=== PATIENT | female | born 1985 | race Caucasian/White ===

== ENCOUNTER → 2016-06-25 | Outpatient (CLI) | payer BC ==
[2016-06-25 18:51] LABS: ALANINE AMINOTRANSFERASE 16 U/L (9-52); ALBUMIN 3.5 g/dL (3.5-5.0); ALKALINE PHOSPHATASE 178 U/L (38-126); ANION GAP 13 (5-19); ASPARTATE AMINO TRANSFERASE 18 U/L (14-36); BILIRUBIN,TOTAL 0.5 mg/dL (0.2-1.3); BLOOD UREA NITROGEN 9 mg/dL (7-20); CALCIUM 9.3 mg/dL (8.4-10.2); CARBON DIOXIDE 23 mmol/L (22-30); CHLORIDE 102 mmol/L (98-107); CREATININE RESULT 0.62 mg/dL (0.52-1.25); GLUCOSE 106 mg/dL (75-110); POTASSIUM 3.9 mmol/L (3.6-5.0); SODIUM 137.8 mmol/L (137-145); TOTAL PROTEIN 6.1 g/dL (6.3-8.2)
== END ==
LOC: OD 16:51
PROVIDERS: ATTEND Midwife
DX: L29.9 Pruritus, unspecified (principal)
CPT/HCPCS: 36415; 80053; 82239

== ENCOUNTER 2016-07-21 04:12 | Inpatient (IN) | payer BC ==
[2016-07-21] MEDS ORDERED: RINGERS SOLUTION,LACTATED 1,000 ML IV PRN (04:28)
[2016-07-21] MEDS ORDERED: RINGERS SOLUTION,LACTATED 1,000 ML IV ONE (04:28)
[2016-07-21 04:38] LABS: APPEARANCE,URINE TURBID; BILIRUBIN,URINE NEGATIVE (NEGATIVE); GLUCOSE, URINE NEGATIVE (NEGATIVE); KETONES,URINE 20 mg/dL (NEGATIVE); LEUKOCYTE ESTERASE,URINE NEGATIVE (NEGATIVE); NITRITE,URINE NEGATIVE (NEGATIVE); PROTEIN,URINE 100 mg/dL (NEGATIVE); URINE SPECIFIC GRAVITY 1.016; UROBILINOGEN,URINE NEGATIVE mg/dL (<2.0)
[2016-07-21] MEDS ORDERED: EPHEDRINE SULFATE INJ 50 MG/1 ML AMPULE ONE (04:43)
[2016-07-21] MEDS ORDERED: OXYTOCIN/NORMAL SALINE 20 UNIT/1,000 ML RTUINJ ONE ×2 (04:43→06:53)
[2016-07-21] MEDS ORDERED: LIDOCAINE 1% INJ-PF (10 MG/ML) 30 ML SDV ONE (04:43)
[2016-07-21] MEDS ORDERED: FENTANYL/BUPIVACAINE/NS/PF 0 MCG/0 ML RTUINJ EPI ONE (04:43)
[2016-07-21] MEDS ORDERED: MISOPROSTOL 0.2 MG TABLET ONE (04:43)
[2016-07-21] MEDS ORDERED: BUPIVACAINE HCL 0.25 % INJ/PF (2.5 MG/1 ML) 30 ML VIAL ONE (04:43)
[2016-07-21 04:51] LABS: ABSOLUTE EOSINOPHILS # (AUTO) 0.2 10^3/uL (0.0-0.6); ABSOLUTE LYMPHOCYTES (AUTO) 2.1 10^3/uL (0.5-4.7); ABSOLUTE MONOCYTES (AUTO) 0.9 10^3/uL (0.1-1.4); BASOPHILS % (AUTO) 0.5 % (0-2); EOSINOPHILS % (AUTO) 1.6 % (0-6); HEMATOCRIT 35.1 % (36.0-47.0); HEMOGLOBIN 11.7 g/dL (12.0-15.5); LYMPHOCYTES % (AUTO) 20.4 % (13-45); MEAN CORPUSCULAR HEMOGLOBIN 28.3 pg (27.0-33.4); MEAN CORPUSCULAR HGB CONC 33.4 g/dL (32.0-36.0); MEAN CORPUSCULAR VOLUME 85 fl (80-97); MONOCYTES % (AUTO) 8.5 % (3-13); RED BLOOD COUNT 4.15 10^6/uL (3.72-5.28); RED CELL DISTRIBUTION WIDTH 14.3 % (11.5-14.0); WHITE BLOOD COUNT 10.1 10^3/uL (4.0-10.5)
[2016-07-21 04:58] LABS: URINE BARBITURATES SCREEN NEGATIVE; URINE METHADONE SCREEN NEGATIVE; URINE OPIATES LOW NEGATIVE; URINE PHENCYCLIDINE SCREEN NEGATIVE
[2016-07-21] MEDS ORDERED: IBUPROFEN 800 MG TABLET ONE (07:37)
--- NOTE | 2016-07-21 08:01 | L&D Flow Sheet ---
LD Flowsheet Datetime Report Generated by CPN: 07/21/2016 08:00 Datetime: 07/21/2016 07:30 NBP Sys/Rebecca/Mean (mmHg): 133 (QS system process) : 84 (QS system process) : 104 (QS system process) Pulse: 72 (QS system process) Datetime: 07/21/2016 07:12 Vital Signs Stage of : Recovery (Gi Cunningham, RN) Datetime: 07/21/2016 07:00 Vital Signs Stage of : Recovery (Gi Cunningham, RN) Pain Pain Scale: 0 (Gi Cunningham, RN) Pain Presence: None/Denies (Gi Cunningham, RN) Pain Type: N/A (Gi Cunningham, RN) Datetime: 07/21/2016 06:56 Vital Signs Stage of : Recovery (Gi Cunningham, RN) Datetime: 07/21/2016 06:45 Vital Signs Stage of : Recovery (Gi Cunningham, RN) Pain Pain Scale: 0 (Gi Cunningham, RN) Pain Presence: None/Denies (Gi Cunningham, RN) Pain Type: N/A (Gi Cunningham, RN) Datetime: 07/21/2016 06:32 Vital Signs Stage of : Recovery (Gi Cunningham, RN) Datetime: 07/21/2016 06:30 Vital Signs Stage of : Recovery (Gi Cunningham, RN) Pain Pain Scale: 2 (Gi Cunningham, RN) Pain Presence: Constant (Gi Cunningham, RN) Pain Type: Cramping (Gi Cunningham, RN) Pain Location: Abdomen (Gi Cunningham, RN) Pain Goal: 1 (Gi Cunningham, RN) Pain Relief Measures: Comfort Measures (Gi Cunningham, RN) Datetime: 07/21/2016 06:15 Vital Signs Stage of : Recovery (Gi Cunningham, RN) Respirations: 18 (Gi Cunningham, RN) Pain Pain Scale: 2 (Gi Cunningham, RN) Pain Presence: Constant (Gi Cunningham, RN) Pain Type: Cramping (Gi Cunningham, RN) Pain Location: Abdomen (Gi Cunningham, RN) Pain Goal: 1 (Gi Cunningham, RN) Pain Relief Measures: Comfort Measures (Gi Cunningham, RN) Datetime: 07/21/2016 06:00 Vital Signs Stage of : Recovery (Gi Cunningham, RN) Respirations: 18 (Gi Cunningham, RN) Pain Pain Scale: 2 (Gi Cunningham, RN) Pain Presence: Constant (Gi Cunningham, RN) Pain Type: Cramping (Gi Cunningham, RN) Pain Location: Abdomen (Gi Cunningham, RN) Pain Goal: 1 (Gi Cunningham, RN) Pain Relief Measures: Comfort Measures (Gi Cunningham, RN) Datetime: 07/21/2016 05:57 Vital Signs Stage of : Recovery (Gi Cunningham, RN) Datetime: 07/21/2016 05:38 Vital Signs Stage of : Labor (Gi Cunningham, RN) Uterine Activity Monitor Mode: External; Palpation (Gi Cunningham, RN) Frequency (min): 1-2.5 (Gi Cunningham, RN) Quality: Strong (Gi Cunningham, RN) Duration (sec): 70-120 (Gi Cunningham, RN) Pattern: Normal: <= 5 Contractions in 10 Minutes (Gi Cunningham, RN) Resting Tone (Palpate): Relaxed (Gi Cunningham, RN) Assessment A Monitor Mode: External US (Gi Cunningham, RN) Monitor Interventions for FHR: Ultrasound Adjusted (Gi Cunningham, RN) FHR Baseline Rate : 140 (Gi Cunningham, RN) Variability: Moderate 6-25 bpm (Gi Cunningham, RN) Accelerations: 15X15 (Gi Cunningham, RN) Decelerations: None (Gi Cunningham, RN) Communication Communication: RN at Bedside; RN Reviewed Strip (Gi Cunningham, RN) Datetime: 07/21/2016 05:34 Stage 2 Pushing: Urge to Push (Gi Cunningham, RN) Pushing Position: Pushing with Contractions (Gi Cunningham, RN) Pushing Progress: Descent with Pushing; Presenting Part Visible (Gi Cunningham, RN) Stage 2 Comments: Continuously monitoring FHR while pushing with patient (Gi Octavio, RN) Datetime: 07/21/2016 05:33 Vaginal Exam Dilatation (cm): 10.0 (Lynne Addy, RN) Effacement (%): 100 (Lynne Addy, RN) Station: 2 (Lynne Cheungsel, RN) Exam by: B Octavio RN (Lynne Addy, RN) Datetime: 07/21/2016 05:30 Communication Communication: Provider at Bedside (Lynne Addy, RN) Communication Comments: Dr Lim at bedside (Lynne Addy, RN) Datetime: 07/21/2016 05:23 Monitor Interventions for FHR: Ultrasound Adjusted (Lynne Addy, RN) Datetime: 07/21/2016 05:18 Procedures: Bedside Ultrasound Done (Lynne Addy, RN) Datetime: 07/21/2016 05:15 Vital Signs Stage of : Labor (Gi Cunningham, RN) Uterine Activity Monitor Mode: External; Palpation (Gi Cunningham, RN) Frequency (min): 1.5-2.5 (Gi Cunningham, RN) Quality: Strong (Gi Cunningham, RN) Duration (sec): 60-110 (Gi Cunningham, RN) Pattern: Normal: <= 5 Contractions in 10 Minutes (Gi Cunningham, RN) Resting Tone (Palpate): Relaxed (Gi Cunningham, RN) Assessment A Monitor Mode: External US (Gi Cunningham, RN) FHR Baseline Rate : 125 (Ig Cunningham, RN) Variability: Moderate 6-25 bpm (Gi Cunningham, RN) Accelerations: 15X15 (Gi Cunningham, RN) Decelerations: None (Gi Cunningham, RN) Pain Pain Scale: 5 (Gi Cunningham, RN) Pain Presence: Intermittent (Gi Cunningham, RN) Pain Type: Contraction (Gi Cunningham, RN) Pain Location: Abdomen; Perineum (Gi Cunningham, RN) Stage 2 Pushing: Involuntary Pushing (Gi Cunningham, RN) Stage 2 Comments: encouraging patient to breath through cobntractions (Gi Cunningham, RN) Communication Communication: RN at Bedside; RN Reviewed Strip (Gi Cunningham, RN) LaborFlag: Labor (QS system process) Datetime: 07/21/2016 05:10 Communication Comments: Dr. Lim notified of pt's rapid progress. (Lisa Isak, RN) Datetime: 07/21/2016 05:07 Vaginal Exam Dilatation (cm): 8.0 (Gi Cunningham, RN) Effacement (%): 90 (Gi Cunningham, RN) Station: -1 (Gi Cunningham, RN) Exam by: Garth Parisi RN (Gi Cunningham, RN) Vaginal Bleeding: None (Gi Cunningham, RN) Cervix, Consistency: Soft (Gi Cunningham, RN) Cervix, Position: Midposition (Gi Cunningham, RN) Datetime: 07/21/2016 05:00 Vital Signs Stage of : Labor (Gi Cunningham, RN) Uterine Activity Monitor Mode: External; Palpation (Gi Cunningham, RN) Frequency (min): 1.5-2.5 (Gi Cunningham, RN) Quality: Strong (Gi Cunningham, RN) Duration (sec): 60-120 (Gi Cunningham, RN) Pattern: Normal: <= 5 Contractions in 10 Minutes (Gi Cunningham, RN) Resting Tone (Palpate): Relaxed (Gi Cunningham, RN) Assessment A Monitor Mode: External US (Gi Cunningham, RN) FHR Baseline Rate : 130 (Gi Cunningham, RN) Variability: Moderate 6-25 bpm (Gi Cunningham, RN) Accelerations: 10X10 (Gi Cunningham, RN) Decelerations: Early (Gi Cunningham, RN) Communication Communication: RN at Bedside; RN Reviewed Strip (Gi Cunningham, RN) Datetime: 07/21/2016 04:50 Procedures: Consents Signed (Gi Cunningham, RN) Datetime: 07/21/2016 04:45 Vital Signs Stage of : Labor (Gi Cunningham, RN) Uterine Activity Monitor Mode: External; Palpation (Gi Cunningham, RN) Frequency (min): 1-2 (Gi Cunningham, RN) Quality: Strong (Gi Cunningham, RN) Duration (sec): 40-90 (Gi Cunningham, RN) Pattern: Normal: <= 5 Contractions in 10 Minutes (Gi Cunningham, RN) Resting Tone (Palpate): Relaxed (Gi Cunningham, RN) Assessment A Monitor Mode: External US (Gi Cunningham, RN) FHR Baseline Rate : 130 (Gi Cunningham, RN) Variability: Moderate 6-25 bpm (Gi Cunningham, RN) Accelerations: 10X10 (Gi Cunningham, RN) Decelerations: None (Gi Cunningham, RN) Pain Pain Scale: 4 (Gi Cunningham, RN) Pain Presence: Intermittent (Gi Cunningham, RN) Pain Type: Contraction (Gi Cunningham, RN) Pain Location: Abdomen (Gi Cunningham, RN) Pain Goal: 1 (Gi Cunningham, RN) Pain Relief Measures: Comfort Measures (Gi Cunningham, RN) Comfort Measures: Breathing/Relaxation (Gi Cunningham, RN) Communication Communication: RN at Bedside; RN Reviewed Strip (Gi Cunningham, RN) LaborFlag: Labor (QS system process) Datetime: 07/21/2016 04:44 Patient Care IV/Blood Work: Labs Drawn (Gi Cunningham, RN) Datetime: 07/21/2016 04:41 Frequency (min): every 1-5 minutes per patient (Gi Cunningham, RN) Pain Pain Scale: 3 (Gi Cunningham, RN) Pain Presence: Intermittent (Gi Cunningham, RN) Pain Type: Contraction (Gi Cunningham, RN) Pain Location: Back (Gi Cunningham, RN) Pain Goal: 1 (Gi Cunningham, RN) Pain Relief Measures: Comfort Measures (Gi Cunningham, RN) Pain Coping: Breathing Through Contractions (Gi Cunningham, RN) Membrane Status: Ruptured (Gi Cunningham, RN) Membranes Ruptured Date/Time: 07/21/2016 03:15 (Gi Cunningham, RN) Membranes Rupture Method: Spontaneous (Gi Cunningham, RN) Amniotic Fluid Color: Clear (Gi Cunningham, RN) Amniotic Fluid Amount: Small (Gi Cunningham, RN) Amniotic Fluid Odor: Normal (Gi Cunningham, RN) Vaginal Bleeding: None (Gi Cunningham, RN) Maternal Assessment Level of Consciousness: Fully Conscious (Gi Cunningham, RN) DTR's/Clonus: DTRs 2+; No Clonus (Gi Cunningham, RN) Headache: Denies (Gi Cunningham, RN) Breath Sounds, Left: Clear and Equal (Gi Cunningham, RN) Breath Sounds, Right: Clear and Equal (Gi Cunningham, RN) Nausea/Vomiting: Denies (Gi Cunningham, RN) RUQ Epigastric Pain: Denies (Gi Cunningham, RN) Datetime: 07/21/2016 04:36 NBP Sys/Rebecca/Mean (mmHg): 125 (QS system process) : 85 (QS system process) : 98 (QS system process) Pulse: 85 (QS system process) Datetime: 07/21/2016 04:32 Patient Care IV/Blood Work: IV Started; IV Bolus Started (Gi Cunningham RN) Patient Care Comments: 18 gauge placed in L hand in first attempt by Kassidy Daly RN (Gi Cunningham RN) Datetime: 07/21/2016 04:29 Vaginal Exam Dilatation (cm): 5.0 (Gi Cunningham RN) Effacement (%): 90 (Gi Cunningham RN) Station: -2 (Gi Cunningham RN) Exam by: Jillian Cunningham RN (Gi Cunningham RN) Vaginal Bleeding: None (Gi Cunningham RN) Cervix, Consistency: Soft (Gi Cunningham RN) Cervix, Position: Midposition (Gi Cunningham RN)
--- NOTE | 2016-07-21 08:01 | Admission Physical ---
Datetime Report Generated by CPN: 07/21/2016 08:01 CURRENT ADMISSION Hx Assessment: The History has been Reviewed and is Current Chief Complaint: Uterine Contractions; Suspected Ruptured Membranes Indication for Induction: Not Applicable Admit Plan: Admit to Unit; Initiate Labor Protocol ALLERGIES Medication Allergies: Yes Medication Allergies: prednisone (07/21/2016) Latex: No Latex Allergies Food Allergies: none Environmental Allergies: none OBSTETRICAL HISTORY EDC: 08/01/2016 00:00 : 4 Para: 1 Term: 1 : 0 SAB: 2 IAB: 0 Ectopic: 0 Livin Cesareans: 0 VBACs: 0 Multiple Births: 0 Gestational Diabetes: Yes Rh Sensitization: No Incompetent Cervix: No PANTERA: No Infertility: No ART Treatment: No Uterine Anomaly: No IUGR: No Hx Previous C/S: No Macrosomia: No Hx Loss/Stillborn: No PIH: No Hx : No Placenta Previa/Abruption: No Depression/PP Depression: No PTL/PROM: No Post Hemorrhage: No Current Procedures: Ultrasound; NST Obstetrical History Comments: G1- male @ 39 wks gestation G2- 12/2014 SAB G304/2015 SAB G4- Current SEE RECORDS Alcohol: No Marijuana : No Cocaine: No Other Illicit Drugs: No Cigarettes: Former Smoker. [id number] MEDICAL HISTORY Diabetes: No Diabetes Type: Gestational Diabetes Blood Transfusion: No Pulmonary Disease (Asthma, TB): No Breast Disease: No Hypertension: No Poultry Helper Surgery: No Heart Disease: No Hosp/Surgery: Yes Autoimmune Disorder: No Anesthetic Complications: No Kidney Disease: No Abnormal Pap Smear: Yes Neuro/Epilepsy: No Psychiatric Disorders: No Other Medical Diseases: No Hepatitis/Liver Disease: No Significant Family History: No Varicosities/Phlebitis: No Trauma/Violence : No Thyroid Dysfunction: No Medical History Comments: 11/2013-ASCUS pap; Childbirth; INFECTIOUS HISTORY Gonorrhea: No Genital Herpes: No Chlamydia: No Tuberculosis: No Syphilis: No Hepatitis: No HIV/AIDS Exposure: No Rash or Viral Illness: No HPV: No PHYSICAL EXAM General: Normal HEENT: Deferred Neurologic: Deferred Thyroid: Deferred Heart: Normal Lungs: Normal Breast: Deferred Back: Deferred Abdomen: Normal Genitourinary Exam: Normal Extremities: Normal DTRs: Normal Pelvic Type: Adequate Vital Signs: Reviewed; Within Normal Limits MEMBRANES Membranes: Ruptured FETUS A EGA: 38.3 FHR- Baseline: 140 Variability: Moderate 6-25bpm Accelerations: 15X15 Decelerations: None FHR Category: Category I Admit Comment: TErm labor and delivery. GBS neg PLANS FOR LABOR AND DELIVERY Labor and Delivery: None Pain Management: Epidural Feeding Preference: Breast Benefit of Breast Feed Discussed: Yes Circumcision: N/A INFORMED CONSENT Signature: with User ID: [email or web address]
[2016-07-21] MEDS ORDERED: DIPH/PERTUSS(ACELL)/TETANUS VAC/PF 0.5 ML SYR (>=10YO) IM PRN (08:03)
[2016-07-21] MEDS ORDERED: OXYTOCIN/NORMAL SALINE 1,000 ML IV PRN (08:03)
[2016-07-21] MEDS ORDERED: ACETAMINOPHEN WITH CODEINE #3 TABLET PO PRN ×2 (08:03)
[2016-07-21] MEDS ORDERED: BENZOCAINE/MENTHOL AEROSOL SPRAY 56 ML TOP PRN (08:03)
[2016-07-21] MEDS ORDERED: DIBUCAINE 1% OINTMENT 28 GM TP PRN (08:03)
[2016-07-21] MEDS ORDERED: MEASLES,MUMPS&RUBELLA VACC/PF 0.5 ML VIAL SUBCUT PRN (08:03)
[2016-07-21] MEDS ORDERED: ZOLPIDEM TARTRATE 5 MG TABLET PO PRN (08:03)
[2016-07-21] MEDS: PRENATAL VITAMIN W-O CA NO5/FE FUMARATE/FA CAPSULE PO SCH (10:08)
[2016-07-21] MEDS: SENNOSIDES/DOCUSATE 8.6-50 MG 1 EACH TABLET PO SCH (10:08)
[2016-07-21] MEDS: DOCUSATE SODIUM 100 MG CAPSULE PO SCH ×2 (10:08→17:55)
[2016-07-21] MEDS: FERROUS SULFATE 325 MG TABLET PO SCH ×2 (10:09→17:55)
[2016-07-21] MEDS: IBUPROFEN 800 MG TABLET PO SCH ×2 (13:39→21:19)
--- NOTE | 2016-07-21 17:28 | Delivery Summary ---
Del Sum A-C Datetime Report Generated by CPN: 07/21/2016 17:28 ADMISSION DATA Chief Complaint: Uterine Contractions; Suspected Ruptured Membranes Indication for Induction: Not Applicable Admission Impression: Term, Intrauterine ; Active Labor; Ruptured Membranes Admit Provider Comments: TErm labor and delivery. GBS neg DELIVERY PERSONNEL Delivery Doctor:: Carolyn Lim MD Labor and Delivery Nurse:: Gi Cunningham RNpear picker Nurse:: Lynne Daly RN Wash Operator/CHARLEE: Megan Potter, STOVE INSTALLER MATERNAL INFORMATION Delivery Anesthesia: Local Medications After Delivery: Pitocin Drip 20 Units/1000ml NSS Estimated Blood Loss (ml): 400 Maternal Complications: Precipitous Labor (<3hrs) Provider Comments: over lac with repair as above. live female infant ap 8/9 wt 8-15. spontaneous intact placenta 3vc. nocomplications LABOR SUMMARY EDC: 08/01/2016 00:00 No. Babies in Womb: 1 Attempted: No Labor Anesthesia: None LABOR INFORMATION Reason for Induction: Not Applicable Onset of Labor: 07/21/2016 03:15 Complete Dilatation: 07/21/2016 05:33 Oxytocin: N/A Group B Beta Strep: Negative Steroids Given: None Reason Steroids Not Administered: Not Applicable MEMBRANES Membranes Rupture Method: Spontaneous Rupture of Membranes: 07/21/2016 03:15 Length of Rupture (hr): 2.40 Amniotic Fluid Color: Clear Amniotic Fluid Amount: Small Amniotic Fluid Odor: Normal STAGES OF LABOR Stage 1 hr: 2 Stage 1 min: 18 Stage 2 hr: 0 Stage 2 min: 6 Stage 3 hr: 0 Stage 3 min: 18 Total Time in Labor hr: 2 Total Time in Labor min: 42 VAGINAL DELIVERY Episiotomy: None Laceration Extension: Second Degree Laceration Type: Perineal Laceration Repair: Yes Laceration Repair Note: 2nd deg perineal lac repaired in usual fashion with 3-0 vicryl Sponge Count Correct: N/A CSECTION DELIVERY Primary Indication: N/A Secondary Indication: N/A CSection Incidence: N/A Labor: N/A Elective: N/A CSection Incision: N/A BABY A INFORMATION Delivery Date/Time: 07/21/2016 05:39 Method of Delivery: Vaginal Born in Route : No : N/A Forceps: N/A Vacuum Extraction: N/A Shoulder Dystocia : No PRESENTATION/POSITION BABY A Presentation: Cephalic Cephalic Presentation: Vertex Vertex Position: Left Occipital Anterior Breech Presentation: N/A PLACENTA INFORMATION BABY A Placenta Delivery Time : 07/21/2016 05:57 Placenta Method of Delivery: Spontaneous Placenta Status: Delivered SCORES BABY A Heart Rate 1 min: >100 bpm Resp Effort 1 min: Slow, Irregular Reflex Irritability 1 min: Cough or Sneeze or Pulls Away Muscle Tone 1 min: Active Motion Color 1 min: Body [place], Extremities Blue SCORE 1 MIN: 8 Heart Rate 5 min: >100 bpm Resp Effort 5 min: Good Cry Reflex Irritability 5 min: Cough or Sneeze or Pulls Away Muscle Tone 5 min: Active Motion Color 5 min: Body [place], Extremities Blue SCORE 5 MIN: 9 INFORMATION BABY A Gestational Age at Delivery: 38.3 Gestational Status: Early Term- 37- 38.6 Weeks Outcome : Liveborn Infant Condition : Stable Sex: Female IDENTIFICATION BABY A Infant Verification Date/Time: 07/21/2016 06:04 ID Band Number: [id number] Mother's Name Verified: Yes RN Verifying : B Cunningham, RN Additional Verifying Personnel: A Potter, RN WEIGHT/LENGTH BABY A Infant Birthweight (gm): 4050 Infant Weight (lb): 8 Infant Weight (oz): 15 Length (in): 20.50 Length (cm): 52.07 CORD INFORMATION BABY A No. Cord Vessels: 3 Nuchal Cord : N/A Cord Blood Taken: Yes-For Eval (Mom's Blood Type - or O+) Infant Suction: Mouth; Nose ASSESSMENT BABY A Complications: None Physical Findings at Delivery: Within Normal Limits Physical Findings- Other: To [facility] @ 0745 accompanied by [facility] staff Infant Respirations: Appears Normal Skin to Skin: Yes Skin to Skin Time (min): 15 Hotel Guest Service Agent/ALS Called : No Care By: Kassidy Daly RN Transferred To: Remains with Mother SIGNATURES Signature: with User ID: [email or web address]
--- NOTE | 2016-07-21 19:01 | L&D Flow Sheet ---
LD Flowsheet Datetime Report Generated by CPN: 07/21/2016 19:00 Datetime: 07/21/2016 07:50 Pain Scale: 2 ([facility] [place], [facility]) Pain Presence: Intermittent ([facility] [place], [facility]) Pain Type: Burning; Cramping ([facility] [place], [facility]) Pain Location: Abdomen; Perineum ([facility], [facility]) Pain Goal: 1 ([facility] [place], [facility]) Pain Relief Measures: Pain Medication Given; Comfort Measures ([facility] [place], [facility]) Datetime: 07/21/2016 07:45 Stage of : Recovery ([facility] [place], [facility]) Temperature Route: Oral ([facility] [place], [facility]) Pain Scale: 2 ([facility] [place], [facility]) Pain Presence: Intermittent ([facility] [place], [facility]) Pain Type: Cramping ([facility] [place], [facility]) Pain Location: Abdomen ([facility] [place], [facility]) Pain Relief Measures: Comfort Measures ([facility] [place], [facility]) Pain Assessment Comments: No apparent distress noted ([facility] [place], [facility]) Datetime: 07/21/2016 07:30 NBP Sys/Rebecca/Mean (mmHg): 133 (QS system process) : 84 (QS system process) : 104 (QS system process) Pulse: 72 (QS system process) Datetime: 07/21/2016 07:12 Stage of : Recovery (Gi Cunningham, RN) Datetime: 07/21/2016 07:00 Stage of : Recovery (Gi Cunningham RN) Pain Scale: 0 (Gi Cunningham RN) Pain Presence: None/Denies (Gi Cunningham RN) Pain Type: N/A (Gi Cunningham RN)
[2016-07-22] MEDS: IBUPROFEN 800 MG TABLET PO SCH ×3 (05:48→21:29)
--- NOTE | 2016-07-22 06:01 | L&D Current Admission ---
Current Admit Datetime Report Generated by CPN: 07/22/2016 06:00 ADMISSION INFORMATION Current Admit Date/Time: 07/21/2016 04:37 (07/21/2016 04:37:Gi Cunningham RN) Reason for Admission: Rupture of Membranes (07/21/2016 04:37:Gi Cunningham RN) Chief Complaint: Suspected Rupture of Membranes (07/21/2016 04:41:Gi Cunningham RN) EGA per Dates: 38.3 (07/21/2016 04:37:QS system process) Method of Arrival: Wheelchair (07/21/2016 04:37:Gi Cunningham RN) Reason for Induction: Not Applicable (07/21/2016 04:37:Gi Cunningham RN) Records Available: Yes (07/21/2016 04:37:Gi Cunningham RN) General Admission Information: Reviewed (07/21/2016 04:37:Gi Cunningham RN) BELONGINGS/ADVANCED DIRECTIVES Other Belongings: see belongings consent form (07/21/2016 04:37:Gi Cunningham RN) Advance Direct for Healthcare: No, and Wants No Information (07/21/2016 04:37:Gi Cunningham RN) Durable Power of Wash Test Checker: No (07/21/2016 04:37:Gi Cunningham RN) Living Will: No (07/21/2016 04:37:Gi Cunningham RN) Organ Donor: Yes (07/21/2016 04:37:Gi Cunningham RN) Pt Rights Information Given: Yes (07/21/2016 04:37:Gi Cunningham RN) Pt Understands Pt Rights: Yes (07/21/2016 04:37:Gi Cunningham RN) LEARNING ASSESSMENT Knowledge Level: Understands L_D Process; Understands Care Activities; Understands Diagnosis (07/21/2016 04:37:Gi Cunningham RN) Barriers to Learning: None (07/21/2016 04:37:Gi Cunningham RN) Learning Readiness: Motivated (07/21/2016 04:37:Gi Cunningham RN) Learns Best By: 1 to 1 Instruction; Reading; Videos; Demonstration (07/21/2016 04:37:Gi Cunningham RN) Learning Needs: Labor and Delivery Process; Pain Management; Symptoms to Report; Treatment Plan; Medication; Diagnosis; Nutrition; Equipment; Infant Care; Community Resources (07/21/2016 04:37:Gi Cunningham RN) DOMESTIC VIOLANCE SCREENING Dom Viol Threatened/Hurt: No (07/21/2016 04:37:Gi Cunningham RN) Hx of Abuse/Neglect past 2yrs: No (07/21/2016 04:37:Gi Cunningham RN) Feel Unsafe Going Home: No (07/21/2016 04:37:Gi Cunningham RN) Addt'l Observ Indicating Abuse: No (07/21/2016 04:37:Gi Cunningham RN) Reason Unable to Complete Screen: N/A, Screen Completed (07/21/2016 04:37:Gi Cunningham RN) Considered Personal Harm/Suicide: No (07/21/2016 04:37:Gi Cunningham RN) NUTRITIONAL/FUNCTIONAL SCREENING Problem with Appetite >5 Days: No (07/21/2016 04:37:Gi Cunningham RN) Chew/Swallow Difficulties: No (07/21/2016 04:37:Gi Cunningham RN) Inappropriate Wt Gain/Loss: No (07/21/2016 04:37:Gi Cunningham RN) Presence Skin Breakdown/Ulcer: No (07/21/2016 04:37:Gi Cunningham RN) Special Diet: No (07/21/2016 04:37:Gi Cunningham RN) Pt Requests Welding Pantograph Operator Visit: No (07/21/2016 04:37:Gi Cunningham RN) Hx of Any of the Following?: N/A (07/21/2016 04:37:Gi Cunningham RN) New Diagnosis of: N/A (07/21/2016 04:37:Gi Cunningham RN) Requires Assist w/Ambulation: No (07/21/2016 04:37:Gi Cunningham RN) Uses Assist Device to Ambulate: No (07/21/2016 04:37:Gi Cunningham RN) Pt Requires Help w/ADL's: No (07/21/2016 04:37:Gi Cunningham RN)
--- NOTE | 2016-07-22 06:01 | L&D General Admission ---
General Admit Datetime Report Generated by CPN: 07/22/2016 06:00 INFORMATION Patient Age: 30 (07/05/2016 11:18:QS system process) EDC: 08/01/2016 00:00 (07/21/2016 03:27:Shameka Woo RN) : 4 (07/21/2016 03:27:Shameka Woo RN) Para: 1 (07/21/2016 03:27:Shameka Woo RN) Term: 1 (07/21/2016 03:27:Shameka Woo RN) : 0 (07/21/2016 03:27:Shameka Woo RN) Spontaneous Abortions: 2 (07/21/2016 03:27:Shameka Woo RN) Induced Abortions: 0 (07/21/2016 03:27:Shameka Woo RN) Livin (07/21/2016 03:27:Shameka Woo RN) Cesareans: 0 (07/21/2016 03:27:Shameka Woo RN) VBACs: 0 (07/21/2016 03:27:Shameka Woo RN) Ectopic: 0 (07/21/2016 03:27:Shameka Woo RN) Multiple Births: 0 (07/21/2016 03:27:Shameka Woo RN) Baby, Number in Womb: 1 (07/21/2016 03:27:Shameka Woo RN) CARE Primary Lighting Adviser: [facility] (07/21/2016 03:27:Shameka Woo RN) Adequate Care: Yes (07/21/2016 03:27:Shameka Woo RN) Prepregnancy Weight (lb): 215 (07/21/2016 03:27:Shameka Woo RN) Prepregnancy Weight (kg): 97.7 (07/21/2016 03:27:QS system process) Height (in): 64 (07/21/2016 10:23:QS system process) ALLERGIES Medication Allergy: Yes (07/21/2016 03:27:Shameka Woo RN) Medication Allergies: prednisone (07/21/2016) (07/21/2016 04:23:QS system process) Latex Allergy: No Latex Allergies (07/21/2016 03:27:Gi Cunningham RN) Food Allergies: none (07/21/2016 03:27:Gi Cunningham RN) Environmental Allergies: none (07/21/2016 03:27:Gi Cunningham RN) COMMUNICATION Primary Language: Malian (07/21/2016 03:27:Shameka Woo RN) Medical Tx Preferred Language: Malian (07/21/2016 03:27:Shameka Woo RN) DEMOGRAPHICS Address: [place] [address] (07/05/2016 11:18:QS system process) Zipcode: [address] (07/05/2016 11:18:QS system process) Home (07/05/2016 11:18:QS system process) Work (07/05/2016 11:18:QS system process) SSN: [id number] (07/05/2016 11:18:QS system process) Next of Kin Name: ALICIA SOLANO (07/05/2016 11:18:QS system process) Next of Kin (07/05/2016 11:18:QS system process) Next of Kin Relationship: SPO (07/05/2016 11:18:QS system process) Date of : 1985 (07/05/2016 11:18:QS system process) Marital Status: (07/05/2016 11:18:QS system process) Sex: Female (07/05/2016 11:18:QS system process) Race: (07/05/2016 11:18:QS system process) Ethnicity: Non- or (07/05/2016 11:18:QS system process) Shinto: Advent (07/05/2016 11:18:QS system process) DRUG AND ALCOHOL USE Alcohol: No (07/21/2016 03:27:Gi Cunningham RN) Cigarettes: Former Smoker. [id number] (07/21/2016 03:27:Gi Cunningham RN) Marijuana: No (07/21/2016 03:27:Gi Cunningham RN) Cocaine: No (07/21/2016 03:27:Gi Cunningham RN) Other Illicit Drugs: No (07/21/2016 03:27:Gi Cunningham RN) VACCINE HISTORY Influenza Vaccine: Yes (07/21/2016 03:27:Shameka Woo RN) Influenza Date: 04/15/2016 (07/21/2016 03:27:Shameka Woo RN) Pneumococcal Vaccine: No (07/21/2016 03:27:Gi Cunningham RN) Tetanus Vaccine: Uncertain (07/21/2016 03:27:Gi Cunningham RN) Tdap Vaccine: Uncertain (07/21/2016 03:27:Gi Cunningham RN) Hepatitis B Vaccine: Yes (07/21/2016 03:27:Gi Cunningham RN) Middle School Sports Coach: [facility] (07/21/2016 03:27:Gi Cunningham RN) Feeding Preference: Breast (07/21/2016 03:27:Gi Cunningham RN) Benefit of Breast Feed Discussed: Yes (07/21/2016 03:27:Gi Cunningham RN) Circumcision: N/A (07/21/2016 03:27:Gi Cunningham RN) Classes Attended: No (07/21/2016 03:27:Gi Cunningham RN) Tubal Ligation: No (07/21/2016 03:27:Gi Cunningham RN) Tubal Authorization Signed: N/A (07/21/2016 03:27:Gi Cunningham RN) Consent: N/A (07/21/2016 03:27:Gi Cunningham RN) Consent Signed: N/A (07/21/2016 03:27:Gi Cunningham RN) Pain Management Plans: Epidural (07/21/2016 03:27:Gi Cunningham RN) Plans for Labor and Delivery: None (07/21/2016 03:27:Gi Cunningham RN) Support Person: Anthony (07/21/2016 03:27:Gi Cunningham RN) Support Person Relationship: (07/21/2016 03:27:Gi Cunningham RN) Cultural/Spritual Practice: No (07/21/2016 03:27:Gi Cunningham RN) Spir/Cult Dietary Needs: No (07/21/2016 03:27:Gi Cunningham RN) LIVING SITUATION/DISCHARGE PLAN Living Arrangements: House (07/21/2016 03:27:Gi Cunningham RN) Adequate Access to:: Electric; Heat; Refrigeration; Plumbing/Running water; Phone; Transportation (07/21/2016 03:27:Gi Cunningham RN) WIC Program: No (07/21/2016 03:27:Gi Cunningham RN) Discharge Ferruler Person: Anthony (07/21/2016 03:27:Gi Cunningham RN) Person to Help after Discharge: Anthony (07/21/2016 03:27:Gi Cunningham RN) Currently Using Commun Resources: No (07/21/2016 03:27:Gi Cunningham RN) Outside Agency/Manager Photography: No (07/21/2016 03:27:Gi Cunningham RN) Car Seat for Discharge: Yes (07/21/2016 03:27:Gi Cunningham RN) Adoption Requested: No (07/21/2016 03:27:Gi Cunningham RN) Pt Contact w/ Post : N/A (07/21/2016 03:27:Gi Cunningham RN) LABS Blood Type: A Negative (07/21/2016 03:27:Shameka Woo RN) Antibody Screen: Negative (07/21/2016 03:27:Shameka Woo RN) Hemoglobin: 12.0-15.5 g/dL (07/22/2016 06:01:QS system process) Hematocrit: 35.1 L (07/21/2016 04:40:QS system process) MCV: 85 (07/21/2016 04:40:QS system process) Group Beta Strep: Negative (07/21/2016 03:27:Shameka Woo RN) Gonorrhea: Negative (07/21/2016 03:27:Shameka Woo RN) Chlamydia: Negative (07/21/2016 03:27:Shameka Woo RN) HIV Results: Negative (07/21/2016 03:27:Shameka Woo RN) Hepatitis B: Negative (07/21/2016 03:27:Shameka Woo RN) Rubella: Immune (07/21/2016 03:27:Shameka Woo RN) OB/PREVIOUS HISTORY Previous Procedures: Ultrasound (07/21/2016 03:27:Shameka Woo RN) Current Procedures: Ultrasound; NST (07/21/2016 03:27:Shameka Woo RN) History of Previous : No (07/21/2016 03:27:Shameka Woo RN) History of Gestational Diabetes: Yes (07/21/2016 03:27:Shameka Woo RN) History of PIH: No (07/21/2016 03:27:Gi Cunningham RN) History of Incompetent Cervix: No (07/21/2016 03:27:Shameka Woo RN) History of Placenta Previa/Abrup: No (07/21/2016 03:27:Gi Cunningham RN) History of Macrosomia: No (07/21/2016 03:27:Shameka Woo RN) History of IUGR: No (07/21/2016 03:27:Shameka Woo RN) History of Hemorrhage: No (07/21/2016 03:27:Gi Cunningham RN) History of Loss/Stillborn: No (07/21/2016 03:27:Shameka Woo RN) History of : No (07/21/2016 03:27:Shameka Woo RN) History of D (Rh) Sensitization: No (07/21/2016 03:27:Shameka Woo RN) History Recurrent Loss/Stillborn: No (07/21/2016 03:27:Shameka Woo RN) History Depression/PP Depression: No (07/21/2016 03:27:Gi Cunningham RN) History of Uterine Anomaly/PANTERA: No (07/21/2016 03:27:Shameka Woo RN) History of Infertility: No (07/21/2016 03:27:Shameka Woo RN) History of ART Treatment: No (07/21/2016 03:27:Gi Cunningham RN) History of PANTERA: No (07/21/2016 03:27:Shameka Woo RN) Comments Obstetrical History: G1-03/2010- male @ 39 wks gestation G2- 12/2014 SAB G3- 04/2015 SAB G4- Current (07/21/2016 03:27:Shameka Woo RN) MEDICAL HISTORY Med Hx Diabetes: No (07/21/2016 03:27:Gi Cunningham RN) Diabetes Type: Gestational Diabetes (07/21/2016 03:27:Shameka Woo RN) Med Hx Hypertension: No (07/21/2016 03:27:Gi Cunningham RN) Med Hx Heart Disease: No (07/21/2016 03:27:Gi Cunningham RN) Med Hx Autoimmune Disorder: No (07/21/2016 03:27:Gi Cunningham RN) Med Hx Kidney Disease/UTI: No (07/21/2016 03:27:Gi Cunningham, RN) Med Hx Neurologic/Epilepsy: No (07/21/2016 03:27:Gi Cunningham RN) Med Hx Psychiatric Disorders: No (07/21/2016 03:27:Gi Cunningham RN) Med Hx Hepatitis/Liver Disease: No (07/21/2016 03:27:Gi Cunningham RN) Med Hx Varicosities/Phlebitis: No (07/21/2016 03:27:Gi Cunningham RN) Med Hx Thyroid Dysfunction: No (07/21/2016 03:27:Gi Cunningham RN) Med Hx Trauma/Violence: No (07/21/2016 03:27:Gi Cunningham RN) Med Hx Blood Transfusion: No (07/21/2016 03:27:Gi Cunningham RN) Med Hx Pulmonary (Asthma,TB): No (07/21/2016 03:27:Gi Cunningham RN) Med Hx Breast: No (07/21/2016 03:27:Gi Cunningham RN) Med Hx RN BARIATRIC Surgery: No (07/21/2016 03:27:Gi Cunningham RN) Med Hx Hospitalization/Surgery: Yes (07/21/2016 03:27:Shameka Woo RN) Med Hx Anesthetic Complications: No (07/21/2016 03:27:Gi Cunningham RN) Med Hx Abnormal Pap Smear: Yes (07/21/2016 03:27:Shameka Woo RN) Other Medical Diseases: No (07/21/2016 03:27:Gi Cunningham RN) Med Hx Significant Family Hx: No (07/21/2016 03:27:Gi Cunningham RN) Details of Med/Surg Hx: 11/2013-ASCUS pap; Childbirth; (07/21/2016 03:27:Shameka Woo RN) INFECTIOUS HISTORY Inf Hx Gonorrhea: No (07/21/2016 03:27:Gi Cunningham RN) Inf Hx Chlamydia: No (07/21/2016 03:27:Gi Cunningham RN) Inf Hx Syphilis: No (07/21/2016 03:27:Gi Cunningham RN) Inf Hx HIV/AIDS: No (07/21/2016 03:27:Gi Cunningham RN) Inf Hx Human Papilloma Virus: No (07/21/2016 03:27:Gi Cunningham RN) Inf Hx Pt/Partner Genital Herpes: No (07/21/2016 03:27:Gi Cunningham RN) Inf Hx Tuberculosis/Exposure: No (07/21/2016 03:27:Gi Cunningham RN) Inf Hx Hepatitis B,C: No (07/21/2016 03:27:Gi Cunningham RN) Inf Hx Rash or Viral Illness: No (07/21/2016 03:27:Gi Cunningham RN) GENETIC HISTORY Gen Hx Age >=35 at DHIRAJ: No (07/21/2016 03:27:Gi Cunningham RN) Gen Hx Thalassemia: No (07/21/2016 03:27:Gi Cunningham RN) Gen Hx Congenital Heart Defect: No (07/21/2016 03:27:Gi Cunningham RN) Gen Hx Neural Tube Defect: No (07/21/2016 03:27:Gi Cunningham RN) Gen Hx Down's Syndrome: Yes (07/21/2016 03:27:Shameka Woo RN) Gen Hx Aakash-Sachs: No (07/21/2016 03:27:Gi Cunningham RN) Gen Hx Tello: No (07/21/2016 03:27:Gi Cunningham RN) Gen Hx Familial Dysautonomia: No (07/21/2016 03:27:Gi Cunningham RN) Gen Hx Sickle Cell Disease/Trait: No (07/21/2016 03:27:Gi Cunningham RN) Gen Hx Hemophilia/Blood Disorder: No (07/21/2016 03:27:Gi Cunningham RN) Gen Hx Muscular Dystrophy: No (07/21/2016 03:27:Gi Cunningham RN) Gen Hx Cystic Fibrosis: No (07/21/2016 03:27:Gi Cunningham RN) Gen Hx Huntingtons Chorea: No (07/21/2016 03:27:Gi Cunningham RN) Gen Hx Mental Retardation/Autism: No (07/21/2016 03:27:Gi Cunningham RN) Gen Hx Tested for Fragile X: No (07/21/2016 03:27:Gi Cunningham RN) Gen Hx Other Inher/Chromosomal: No (07/21/2016 03:27:Gi Cunningham RN) Gen Hx Maternal Metabolic DO: No (07/21/2016 03:27:Gi Cunningham RN) Gen Hx Pt Father or FOB Defect: No (07/21/2016 03:27:Gi Cunningham RN) Gen Hx Other Genetic History: No (07/21/2016 03:27:Gi Cunningham RN) Gen Hx Drugs/Meds since LMP: No (07/21/2016 03:27:Gi Cunningham RN) Details of Genetic History: Nephew with Down Syndrome (07/21/2016 03:27:Shameka Woo RN)
--- NOTE | 2016-07-22 06:16 | L&D Care Plan ---
LD CARE PLANS Datetime Report Generated by CPN: 07/22/2016 06:15 Datetime: 07/21/2016 04:26 Pain State: Risk For (Kristina Ledbetter RN) Related To: Labor and Delivery Process; Surgical Procedure (Kristina Ledbetter RN) Goal(s): Patients Pain will be Assessed and Managed; Patient will Verbalize Adequate Relief of Pain or the Ability to [place] with Current Pain (Kristina Ledbetter RN) Interventions: Assess Pain Severity on Scale of 0 (None) to 5 (Severe); Assess Type, Location and Intensity of Pain Each Time Client Reports Discomfort and Notify Provider if Unusal Pain Develops; Encourage Proper Breathing and Relaxation Techniques; Offer Alternatives Such as Repositioning, Calm Environment, Massages, Diversional Activities, Ice Pack, Splinting, and Ambulation; Administer Analgesics as Ordered; Assist with Epidural Placement as Appropriate; Evaluate Therapeutic Effectiveness of Medication and Treatments (Kristina Ledbetter RN) Outcome: Patient will Report Absence or Relief of Pain Consistent with Established Pain Goal (Kristina Ledbetter RN) Status: Ongoing (Kristina Ledbetter RN) Outcome: Patient will have a Decrease in Signs and Symptoms of Discomfort (Kristina Ledbetter RN) Status: Ongoing (Kristina Ledbetter RN) Outcome: Pain will be Controlled During Procedures (Kristina Ledbetter RN) Status: Ongoing (Kristina Ledbetter RN) Anxiety State: Risk For (Kristina Ledbetter RN) Related To: Labor and Delivery Process; Surgical Procedure (Kristina Ledbetter RN) Goal(s): Patient will have Decreased Anxiety and be able to Function at Acceptable Levels (Kristina Ledbetter RN) Interventions: Assess Verbal and Nonverbal Behavioral Indicators of Anxiety; Assist Patient to Identify and Verbalize Symptoms of Anxiety; Identify and Demonstrate Techniques to Control Anxiety; Assist Patient with Coping Mechanisms to Manage Anxiety; Provide Theraputic Touch for the Patient; Explain to Patient, Using a Calm Reassuring Approach and Nonmedical Terms, All Activities, Procedures, and Concerns; Instruct Patient and Family about Post Discharge Care, Limitations, Symptoms to Report and Resources Available (Kristina Ledbetter RN) Outcome: Patient will Identify, Verbalize and Demonstrate Techniques to Control Anxiety (Kristina Ledbetter RN) Status: Ongoing (Kristina Ledbetter RN) Outcome: Patient's Posture, Facial Expressions, Gestures and Activity Level will Reflect Decreased Anxiety (Kristina Ledbetter RN) Status: Ongoing (Kristina Ledbetter RN) Outcome: Patient will Verbalize a Sense of Control and/or Acceptance of the Situation (Kristina Ledbetter RN) Status: Ongoing (Kristina Ledbetter RN) Outcome: Patient will Identify and Utilize Support Person (Kristina Ledbetter RN) Status: Ongoing (Kristina Ledbetter RN) Knowledge Deficit State: Risk For (Kristina Ledbetter RN) Related To: Labor and Delivery Process; Surgical Procedures (Kristina Ledbetter RN) Goal(s): Patient will Accurately Verbalize Understanding of Plan of Care and Treatment; Patient and Family will Accurately Verbalize Understanding of the Disease Process (Kristina Ledbetter RN) Interventions: Assess Motivation and Willingness of Patient/Family to Learn; Assess Preferred Learning Mode: One to One Instruction, Reading, Videos, Group Discussion or Demonstration; Assess Barriers to Learning: Pain, Emotional State, Language Barrier, Cognitive Impairment, Visual or Hearing Deficits; Assess Patient and Family Knowledge of Disease Process, Medications and Treatment; Discuss Therapy and/or Treatment Options, Describe Rationale Behind Management, Therapy and Treatment Recommendations; Instruct Patient and Family on Signs and Symptoms to Report; Instruct Patient and Family on Medication Effects and Side Effects; Provide Appropriate and Timely Education Using Multiple Techniques; Provide Patient and Family with Support Group Information and Resources; Give Clear and Thorough Explanations and Demonstrations (Kristina Ledbetter RN) Outcome: Patient and Family will Verbalize Understanding of Condition, Treatment and Signs and Symptoms to Report (Kristina Ledbetter RN) Status: Ongoing (Kristina Ledbetter RN) Outcome: Patient will Identify Perceived Learning Needs and Express Motivation to Learn (Kristina Field, RN) Status: Ongoing (Kristina Ledbetter RN) Outcome: Patient will Verbalize Understanding of Desired Content, and/or Performs Desired Skill Prior to Discharge (Kristina Ledbetter RN) Status: Ongoing (Kristina Ledbetter RN) Infection State: Risk For (Kristina Ledbetter RN) Related To: Surgical Procedures (Kristina Ledbetter RN) Goal(s): The Patient will be Free of Infection, Vital Signs Stable and Lab Work within Normal Parameters (Kristina Ledbetter RN) Interventions: Instruct and Reinforce Proper Handwashing, Hygiene, and Care Techniques to Patient and Family; Monitor Vital Signs; Monitor Patient for the Following Signs of Infection: Fever, Abdominal Tenderness, Unusual Discharge; Monitor Aminiotic Fluid, Urine and Lochia for Color and Odor; Observe Wounds, Incisions and Invasive Line Sites for Redness, Drainage and Edema; Assess IV Sites per Hospital Policy; Monitor Lab and Test Results and Notify Provider of Abnormal Findings; Assess Nutritional Status and Promote Good Nutrition (Kristina Ledbetter RN) Outcome: Patient will Remain Free of Infection (Kristina Ledbetter RN) Status: Ongoing (Kristina Ledbetter RN) Outcome: Infection will be Recognized Early to Allow for Prompt Treatment (Kristina Ledbetter RN) Status: Ongoing (Kristina Ledbetter RN) Outcome: Patient will have Vital Signs Within Expected Range (Kristina Ledbetter RN) Status: Ongoing (Kristina Ledbetter RN) Fluid Volume State: Risk For (Kristina Ledbetter RN) Related To: Surgical Procedures; Hemorrhage (Kristina Ledbetter, RN) Goal(s): Patient will Achieve and Maintain a Balanced Fluid Volume Status; Hemodynamically Stable (Kristina Ledbetter RN) Interventions: Monitor Vital Signs; Auscultate Breath Sounds; Monitor Patient for Skin Turgor, Mucous Membranes, Dry Skin, Weakness, Headaches and Confusion; Provide Oral Fluids as Ordered; Initiate and Maintain Intravenous Fluids as Ordered; Monitor Intake and Output as Indicated Per Patient Status; Accurately Measure Blood Loss; Monitor Lab and Test Results as Obtained and Notify Provider of Abnormal Findings; Monitor Patient's Weight (Kristina Ledbetter RN) Outcome: Patient will have Clear Lung Sounds (Kristina Ledbetter, RN) Status: Ongoing (Kristina Ledbetter RN) Outcome: Patient will have Vital Signs within Expected Range (Kristina Ledbetter, RN) Status: Ongoing (Kristina Ledbetter RN) Outcome: Urine Output will be within Expected Range (Kristina Ledbetter, RN) Status: Ongoing (Kristina Ledbetter RN) Outcome: Patient will have Minimal Generalized or Upper Extremity Edema (Kristina Ledbetter RN) Status: Ongoing (Kristina Ledbetter RN) Injury State: Risk For (Kristina Ledbetter RN) Related To: Labor and Delivery Process; Anesthesia (Kristina Ledbetter RN) Goal(s): Patient will Remain Free from Injury (Kristina Ledbetter RN) Interventions: Monitoring as per Hospital Protocol; Assess Neurological Status; Perform Risk Assessment of Patients with Induction and ; Perform Fall Risk Assessment and Prevention per Hospital Protocol; Perform DVT Risk Assessment and Prophylaxis per Hospital Protocol; Ensure that Oxygen, Suction, and Resuscitation Medications and Equipment are Readily Available; Confirm Patient ID Prior to Procedure(s) and Medication Administration per Hospital Policy (Kristina Ledbetter RN) Outcome: Successful Fall Risk Prevention (Kristina Ledbetter RN) Status: Ongoing (Kristina Ledbetter RN) Outcome: Patient will Deliver Infant without Adverse Sequela (Kristina Ledbetter RN) Status: Ongoing (Kristina Ledbetter RN) Outcome: Patient's Neurological Status will Remain Stable (Kristina Ledbetter RN) Status: Ongoing (Kristina Ledbetter RN) Impaired Skin Integrity State: Risk For (Kristina Ledbetter RN) Related To: Vaginal Delivery (Kristina Ledbetter RN) Goal(s): Patient will Maintain Optimal Skin Integrity, Free of Breakdown, Injury or Infection (Kristina Ledbetter RN) Interventions: Complete Screening for Pressure Ulcer Risk and Initiate Protocol per Hospital Policy; Monitor Site of Skin Impairment for Color Changes, Redness, Swelling, Warmth, Pain or Other Signs of Infection; Encourage and Assist with Position Changes; Monitor Patient's Mobility Status; Provide Adequate Nutrition and Fluids; Teach Patient Appropriate Hygienic Care; Teach Patient/Family Skin Care Management (Kristina Ledbetter RN) Outcome: Patient will not have Evidence of Injury Such as Skin Breakdown, Scrapes, Cuts, or Bruising (Kristina Ledbetter RN) Status: Ongoing (Kristina Ledbetter RN) Outcome: Patient will Report Any Altered Sensation or Pain at Site of Skin Impairment (Kristina Ledbetter RN) Status: Ongoing (Kristina Field, RN) Outcome: Patients Incisions and Wounds will be without Signs or Symptoms of Infection (Kristina Ledbetter, RN) Status: Ongoing (Kristina Ledbetter, RN) Outcome: Patient will Demonstrate Understanding of Plan to Heal Skin and Prevent Reinjury and Verbalize Risk Factors (Kristinagorver Ledbetter, RN) Status: Ongoing (Kristina Ledbetter, RN) Parenting Impaired State: Not Applicable (Kristina Ledbetter, RN) Nutrition State: Not Applicable (Kristina Ledbetter, RN) Grieving State: Not Applicable (Kristina Field, RN) Additional Care Plan State: Not Applicable (Kristina Field, RN)
[2016-07-22 06:53] LABS: HEMATOCRIT 31.9 % (36.0-47.0); HEMOGLOBIN 10.6 g/dL (12.0-15.5); HGB HCT DIFFERENCE -0.1; MEAN CORPUSCULAR HEMOGLOBIN 28.6 pg (27.0-33.4); MEAN CORPUSCULAR HGB CONC 33.2 g/dL (32.0-36.0); MEAN CORPUSCULAR VOLUME 86 fl (80-97); RED BLOOD COUNT 3.71 10^6/uL (3.72-5.28); RED CELL DISTRIBUTION WIDTH 14.6 % (11.5-14.0); WHITE BLOOD COUNT 9.6 10^3/uL (4.0-10.5)
[2016-07-22] MEDS: DOCUSATE SODIUM 100 MG CAPSULE PO SCH ×2 (09:33→18:23)
[2016-07-22] MEDS: PRENATAL VITAMIN W-O CA NO5/FE FUMARATE/FA CAPSULE PO SCH (09:33)
[2016-07-22] MEDS: SENNOSIDES/DOCUSATE 8.6-50 MG 1 EACH TABLET PO SCH (09:33)
[2016-07-22] MEDS: FERROUS SULFATE 325 MG TABLET PO SCH ×2 (09:34→18:23)
--- NOTE | 2016-07-22 09:42 | PDOC PROGRESS REPORT ---
Subjective-OB Subjective: Post Delivery Day: 30 year old. Denies any needs at this time Doing well, no c/o, mother at BS, voiding, scant bleeding, ambulating Physical Exam (OB) Vital Signs: Temp Pulse Resp BP Pulse Ox 97.8 F 76 16 113/85 100 07/22/16 07:34 07/22/16 07:34 07/22/16 07:34 07/22/16 07:34 07/22/16 07:34 Intake & Output 07/21/16 07/22/16 07/23/16 06:59 06:59 06:59 Intake Total 900 Balance 900 Weight 111.35 kg - Lochia Lochia Amount: Small 10-25 ml Lochia Color: Rubra/Red - Abdomen Description: Soft, Round Hernia Present: No Fundal Description: Firm, Midline Fundal Height: u/u - u/2 Objective-Diagnostic Laboratory: 07/22/16 06:30 07/22/16 06:30 WBC 9.6 RBC 3.71 L Hgb 10.6 L Hct 31.9 L MCV 86 MCH 28.6 MCHC 33.2 RDW 14.6 H Plt Count 187 Assessment and Plan(PN) - Assessment and Plan (1) Delivery normal Is this a current diagnosis for this admission?: Yes - Time Spent with Patient Time with patient: Less than 15 minutes Medications reviewed and adjusted accordingly: Yes - Disposition Anticipated Discharge: Home Within: within 24 hours
[2016-07-23] MEDS: IBUPROFEN 800 MG TABLET PO SCH ×2 (06:01→13:48)
[2016-07-23 07:46] VITALS: BP 126/93
--- NOTE | 2016-07-23 09:23 | PDOC PROGRESS REPORT ---
Subjective-OB Subjective: Post Delivery Day: 30 year old. Denies any needs at this time Doing well, ready to go home, mother holding baby, breast feeding, voiding well , diet taken well, cramping with , scant lochia Physical Exam (OB) Vital Signs: Temp Pulse Resp BP Pulse Ox 97.8 F 80 14 126/93 H 100 07/23/16 07:44 07/23/16 07:44 07/23/16 07:44 07/23/16 07:44 07/23/16 07:44 Intake & Output 07/22/16 07/23/16 07/24/16 06:59 06:59 06:59 Intake Total 900 650 Balance 900 650 - Lochia Lochia Amount: Scant < 10 ml Lochia Color: Rubra/Red - Abdomen Description: Soft Hernia Present: No Fundal Description: Firm, Midline Fundal Height: u/u - u/2 Objective-Diagnostic Laboratory: 07/22/16 06:30 07/22/16 06:30 Blood Type A NEGATIVE Assessment and Plan(PN) - Assessment and Plan (1) Delivery normal Is this a current diagnosis for this admission?: Yes - Time Spent with Patient Time with patient: Less than 15 minutes Medications reviewed and adjusted accordingly: Yes - Disposition Anticipated Discharge: Home Within: Other - home today
--- NOTE | 2016-07-23 09:27 | PDOC DISCHARGE SUMMARY ---
Final Diagnosis Discharge Date: 07/23/16 - Final Diagnosis (1) Delivery normal Is this a current diagnosis for this admission?: Yes Discharge Data - Discharge Medication Home Medications: Bupropion HCl [Wellbutrin Xl 300mg 24hr Tablet] 300 mg PO DAILY 07/21/16 Vit/Iron Fumarate/FA [ Tablet] 1 each PO DAILY 07/21/16 Ibuprofen [Motrin 800 mg Tablet] 800 mg PO Q8 #60 tablet 07/23/16 Gestational Age: 38.3 Reason(s) for Admission: Onset of Labor Procedures: Ultrasound Intrapartum Procedure(s): Spontaneous Vaginal Delivery Complication(s): Laceration-Perineal Laceration-Degree: 2nd - Data Baby 1 Female at 1 minute: 8 at 5 minutes: 9 Weight: 4.054 kg Home with Mother: Yes Complications: No - Diagnosis Test Laboratory: Temp Pulse Resp BP Pulse Ox 97.8 F 80 14 126/93 H 100 07/23/16 07:44 07/23/16 07:44 07/23/16 07:44 07/23/16 07:44 07/23/16 07:44 07/21/16 07/21/16 07/22/16 04:23 04:40 06:30 RBC 4.15 3.71 L Hgb 11.7 L 10.6 L Hct 35.1 L 31.9 L Urine Opiates Screen NEGATIVE - Discharge information/Instructions Discharge Activity: Activity As Tolerated, No Lifting Over 10 Pounds, Pelvic Rest, No tub bath Discharge Diet: As Tolerated, Regular Disposition: HOME, SELF-CARE Follow up with: [facility] in: 4, Weeks
[2016-07-23] MEDS: SENNOSIDES/DOCUSATE 8.6-50 MG 1 EACH TABLET PO SCH (10:00)
[2016-07-23] MEDS: FERROUS SULFATE 325 MG TABLET PO SCH (10:01)
[2016-07-23] MEDS: PRENATAL VITAMIN W-O CA NO5/FE FUMARATE/FA CAPSULE PO SCH (10:01)
[2016-07-23] MEDS: DOCUSATE SODIUM 100 MG CAPSULE PO SCH (10:02)
== END 2016-07-23 14:07 | disposition home or self-care (01) | DRG 775 ==
LOC: LC 04:12 → LR 04:30 → 2S 08:00
PROVIDERS: ADMIT Obstetrics & Gynecology; ATTEND Obstetrics & Gynecology
PROC: 10E0XZZ Delivery of Products of Conception, External Approach (ICD-10-PCS; principal; 2016-07-21)
PROC: 0KQM0ZZ Repair Perineum Muscle, Open Approach (ICD-10-PCS; 2016-07-21)
PROC: 4A1HXCZ Monitoring of Products of Conception, Cardiac Rate, External Approach (ICD-10-PCS; 2016-07-21)
PROC: 3E0234Z Introduction of Serum, Toxoid and Vaccine into Muscle, Percutaneous Approach (ICD-10-PCS; 2016-07-21)
DX: O24.429 Gestational diabetes mellitus in childbirth, unspecified control (principal); O70.1 Second degree perineal laceration during delivery; O26.893 Other specified pregnancy related conditions, third trimester; O62.3 Precipitate labor; Z3A.38 38 weeks gestation of pregnancy; Z67.11 Type A blood, Rh negative; Z87.891 Personal history of nicotine dependence; Z37.0 Single live birth
CPT/HCPCS: 36415; 76815; 80307; 81005; 85025; 85027; 85461; 86592; 86850; 86900; 86901; J2590; J2790; J3490

== ENCOUNTER 2019-11-14 11:59 | Emergency (ER) | payer BC ==
--- NOTE | 2019-11-14 12:42 | ER Document Report ---
ED Medical Screen (RME) - General Chief Complaint: Leg Swelling Stated Complaint: LEG SWELLING Time Seen by Provider: 11/14/19 12:32 Primary Care Provider: VINNIE BREEN MD [Primary Care Provider] - Follow up as needed Mode of Arrival: Ambulatory Information source: Patient Notes: 34-year-old female presented to ED for pain and swelling and redness to the posterior left calf. She went to her primary care doctor and they sent her to the emergency room to get a Doppler of the leg. She is alert oriented respirations regular nonlabored speaking in full sentences. I have greeted and performed a rapid initial assessment of this patient. A comprehensive ED assessment and evaluation of the patient, analysis of test results and completion of medical decision making process will be conducted by an additional ED providers. TRAVEL OUTSIDE OF THE [place] IN LAST 30 DAYS: No - Related Data Allergies/Adverse Reactions: Sulfa (Sulfonamide Antibiotics) Allergy (Verified 11/14/19 12:33) Past Medical History Past Surgical History: Reports: Hx Gynecologic Surgery - Vaginal biopsy 2008, Hx Orthopedic Surgery - ORIF wrist, ankle surgery in 2010 - Immunizations Hx Diphtheria, Pertussis, Tetanus Vaccination: No Physical Exam - Vital signs Vitals: Pulse Resp BP Pulse Ox 76 18 126/81 H 99 11/14/19 12:22 11/14/19 12:22 11/14/19 12:22 11/14/19 12:22 Course - Vital Signs Vital signs: Temp Pulse Resp BP Pulse Ox 76 18 126/81 H 99 11/14/19 12:22 11/14/19 12:22 11/14/19 12:22 11/14/19 12:22 Doctor's Discharge - Discharge Referrals: VINNIE BREEN MD [Primary Care Provider] - Follow up as needed
[2019-11-14 13:38] LABS: ABSOLUTE BASOPHILS # (AUTO) 0.1 10^3/uL (0.0-0.2); ABSOLUTE EOSINOPHILS # (AUTO) 0.5 10^3/uL (0.0-0.6); ABSOLUTE LYMPHOCYTES (AUTO) 1.9 10^3/uL (0.5-4.7); ABSOLUTE MONOCYTES (AUTO) 0.7 10^3/uL (0.1-1.4); ABSOLUTE NEUT (AUTO) 5.6 10^3/uL (1.7-8.2); BASOPHILS % (AUTO) 0.9 % (0-2); EOSINOPHILS % (AUTO) 5.9 % (0-6); HEMATOCRIT 37.5 % (36.0-47.0); HEMOGLOBIN 12.7 g/dL (12.0-15.5); LYMPHOCYTES % (AUTO) 21.6 % (13-45); MEAN CORPUSCULAR HEMOGLOBIN 29.4 pg (27.0-33.4); MEAN CORPUSCULAR HGB CONC 33.9 g/dL (32.0-36.0); MEAN CORPUSCULAR VOLUME 87 fl (80-97); MONOCYTES % (AUTO) 7.5 % (3-13); PLATELET COUNT 440 10^3/uL (150-450); RED BLOOD COUNT 4.32 10^6/uL (3.72-5.28); RED CELL DISTRIBUTION WIDTH 13.1 % (11.5-14.0); SEGMENTED NEUTROPHILS % (AUTO) 64.1 % (42-78); TOTAL CELLS COUNTED % (AUTO) 100 %; WHITE BLOOD COUNT 8.8 10^3/uL (4.0-10.5)
[2019-11-14 13:56] LABS: INTERNATIONAL RATION (INR) 0.99; PROTHROMBIN TIME 13.1 SEC (11.4-15.4)
[2019-11-14 13:57] LABS: PARTIAL THROMBOPLASTIN TIME 32.5 SEC (23.5-35.8)
[2019-11-14 14:03] LABS: ALBUMIN 4.5 g/dL (3.5-5.0); ALKALINE PHOSPHATASE 111 U/L (38-126); ANION GAP 8 (5-19); ASPARTATE AMINO TRANSFERASE 19 U/L (14-36); BILIRUBIN,TOTAL 0.5 mg/dL (0.2-1.3); BLOOD UREA NITROGEN 11 mg/dL (7-20); CALCIUM 9.9 mg/dL (8.4-10.2); CARBON DIOXIDE 25 mmol/L (22-30); CHLORIDE 104 mmol/L (98-107); GLUCOSE 97 mg/dL (75-110); POTASSIUM 4.1 mmol/L (3.6-5.0); TOTAL PROTEIN 7.7 g/dL (6.3-8.2)
--- NOTE | 2019-11-14 14:33 | RADIOLOGY REPORT (SQ) ---
EXAM DESCRIPTION: VENOUS UNILATERAL LOWER IMAGES COMPLETED DATE/TIME: 11/14/2019 2:21 pm REASON FOR STUDY: Pain and swelling to the left calf COMPARISON: None. TECHNIQUE: Dynamic and static aguilar scale and color images acquired of the left leg venous system. Se lected spectral images acquired with additional compression and augmentation maneuvers. The contralat eral common femoral vein and saphenofemoral junction were also imaged. Images stored on PACS. LIMITATIONS: None. FINDINGS: COMMON FEMORAL: Normal phasicity, compression and augmentation. No visualized echogenic ma terial on aguilar scale. No defects on color images. FEMORAL: Normal compression and augmentation. No visualized echogenic material on aguilar scale. No defe cts on color images. POPLITEAL: Normal compression, augmentation. No visualized echogenic material on aguilar scale. No defec ts on color images. CALF VESSELS: Normal compression, augmentation. No visualized echogenic material on aguilar scale. No de fects on color images. GSV and SSV: Normal compression, augmentation. No visualized echogenic material on aguilar scale. No def ects on color images. ANY DEEP VENOUS INSUFFICIENCY: No. ANY EVIDENCE OF POPLITEAL CYST: No. OTHER: No other finding. CONTRALATERAL COMMON FEMORAL VEIN: Normal phasicity, compression and augmentation. No visualized echogenic material on aguilar scale. No de fects on color images. IMPRESSION: NO EVIDENCE OF DVT OR SVT IN THE LEFT LEG. TECHNICAL DOCUMENTATION: JOB ID: [id number] [email or web address] All Rights Reserved Reading location - IP/workstation name: [email or web address]
--- NOTE | 2019-11-14 15:29 | ER Document Report ---
ED General - General Chief Complaint: Leg Pain Stated Complaint: LEG SWELLING Time Seen by Provider: 11/14/19 12:32 Primary Care Provider: VINNIE BREEN MD [ACTIVE STAFF] - Follow up as needed Mode of Arrival: Ambulatory Information source: Patient TRAVEL OUTSIDE OF THE [place] IN LAST 30 DAYS: No - HPI Onset: Other - since last night and seems to be getting worse. Onset/Duration: Gradual Quality of pain: Burning, Throbbing Severity: Moderate Pain Level: 3 Associated symptoms: None Exacerbated by: Movement - of left leg, Other - palpation of left leg. weight bearing on left leg. Relieved by: Denies Similar symptoms previously: No Recently seen / treated by doctor: No Notes: 34 year old female with no significant PMH here in the ER for pain, redness, warmth, and mild swelling of her left calf which started yesterday. The patient's PCP apparently saw the patient earlier in the day and sent her to the ER for an US of her leg. The patient does not remember any trauma to her left leg. The patient denies recent long travel, smoking, family history of blood clots but she is on control. - Related Data Allergies/Adverse Reactions: Sulfa (Sulfonamide Antibiotics) Allergy (Verified 11/14/19 12:33) Past Medical History - General Information source: Patient - Social History Smoking Status: Never Smoker Chew tobacco use (# tins/day): No Frequency of alcohol use: Social Drug Abuse: None Lives with: Family Family History: Reviewed & Not Pertinent Patient has suicidal ideation: No Patient has homicidal ideation: No Past Surgical History: Reports: Hx Gynecologic Surgery - Vaginal biopsy 2008, Hx Orthopedic Surgery - ORIF wrist, ankle surgery in 2010 - Immunizations Hx Diphtheria, Pertussis, Tetanus Vaccination: No Review of Systems - Review of Systems Constitutional: No symptoms reported EENT: No symptoms reported Cardiovascular: No symptoms reported Respiratory: No symptoms reported Gastrointestinal: No symptoms reported Genitourinary: No symptoms reported Female Genitourinary: No symptoms reported Musculoskeletal: Other - pain in left calf with mild swelling Skin: Other - redness and warmth of left calf in area where she has pain Hematologic/Lymphatic: No symptoms reported Neurological/Psychological: No symptoms reported -: Yes All other systems reviewed and negative Physical Exam - Vital signs Vitals: Pulse Resp BP Pulse Ox 76 18 126/81 H 99 11/14/19 12:22 11/14/19 12:22 11/14/19 12:22 11/14/19 12:22 - Notes Notes: GENERAL: Well-appearing, well-nourished and in no acute distress. HEAD: Atraumatic, normocephalic. EYES: Pupils equal round and reactive to light, extraocular movements intact, sclera anicteric, conjunctiva are normal. ENT: External ears normal, nares patent, oropharynx clear without exudates. Moist mucous membranes. NECK: Normal range of motion, supple without lymphadenopathy or JVD. LUNGS: Breath sounds clear to auscultation bilaterally and equal. No wheezes rales or rhonchi. HEART: Regular rate and rhythm without murmurs, rubs or gallops. ABDOMEN: Soft, nontender, normoactive bowel sounds. No guarding, no rebound. No masses appreciated. EXTREMITIES: Tender in left calf on palpation. Normal range of motion, no pitting or edema. No clubbing or cyanosis. NEUROLOGICAL: Cranial nerves II through XII grossly intact. Normal speech, normal gait. PSYCH: Normal mood, normal affect. SKIN: Redness and warmth in oval shape (diameter 10cm) on left calf. Warm, Dry, normal turgor, no rashes or lesions noted. Course - Re-evaluation Re-evalutation: 11/14/19 15:31 The patient had blood work and an US of her left lower extremity ordered in triage which were unremarkable. Patient has no DVT or Bakers Cyst. Patient seems to have cellulitis of her left calf on physical exam. Patient may have been bitten by an insect or had an infection from skin break down from shaving. Will DC patient with a course of Clindamycin. Patient tod to use tylenol and motrin for pain as well as ice packs. Patient told to follow up with her PCP if symptoms do not improve with treatment. - Vital Signs Vital signs: Temp Pulse Resp BP Pulse Ox 98.5 F 76 18 126/81 H 99 11/14/19 12:33 11/14/19 12:22 11/14/19 12:22 11/14/19 12:22 11/14/19 12:22 - Laboratory Result Diagrams: 11/14/19 13:28 11/14/19 13:28 Laboratory results interpreted by me: 11/14/19 13:28 Sodium 136.7 L - Diagnostic Test Radiology reviewed: Image reviewed, Reports reviewed Discharge - Discharge Clinical Impression: Cellulitis of leg, left Condition: Stable Disposition: HOME, SELF-CARE Instructions: Cellulitis ([facility]) Additional Instructions: Take antibiotics (Clindamycin) as prescribed. Follow up with your primary care doctor if the redness, swelling, and pain persists despite treatment. Use tylenol and motrin for pain as well as an ice pack. Prescriptions: Clindamycin HCl [Cleocin 150 mg Capsule] 450 mg PO TID 10 Days #90 capsule Referrals: VINNIE BREEN MD [ACTIVE STAFF] - Follow up as needed
[2019-11-14 16:07] VITALS: BP 134/93
== END 2019-11-14 16:16 | disposition home or self-care (01) ==
LOC: ER 11:59
DX: L03.116 Cellulitis of left lower limb (principal); M79.662 Pain in left lower leg; Z79.3 Long term (current) use of hormonal contraceptives; Z88.2 Allergy status to sulfonamides
CPT/HCPCS: 36415; 80053; 84703; 85025; 85610; 85730; 93971; 99284